=== PATIENT | female | born 1985 | race Caucasian/White ===

== ENCOUNTER → 2023-12-02 | Outpatient (CLI) | payer BC ==
[~2023-12-02] MED LIST: LORTAB 7.5/5001 TAB PO; MOTRIN 600600 MG/TAB PO; PERCOCET 325 MG1 TA2 PO; PRENATAL1 TA1 PO; SENOKOT S 50 MG1 TAB PO; TUCKS50% TP
== END ==
LOC: MC.RAD 14:31
DX: Z12.31 Encounter for screening mammogram for malignant neoplasm of breast (principal); N64.89 Other specified disorders of breast